=== PATIENT | male | born 1995 | race Caucasian/White ===

== ENCOUNTER 2017-01-25 17:51 | Emergency (ER) | payer BC ==
[~2017-01-25] VITALS: Ht 193 cm; Wt 86.2 kg
[2017-01-25 18:00] VITALS: BP 134/72
[2017-01-25] MEDS ORDERED: ACETAMINOPHEN 500 MG TABLET PO ONE (18:00)
--- NOTE | 2017-01-25 18:05 | PHYS DOC ---
Past Medical History Alcohol Use: Occasionally Adult General Chief Complaint Chief Complaint: FEVER HPI HPI Patient is a 21 year old male arrives to the emergency department with a 2 day history of sore throat, fever today. He measured fever 104. He took Tylenol prior to arrival. He states that he developed general body aches yesterday. No nausea, no vomiting, no abdominal pain. Review of Systems Review of Systems Constitutional: Fever Without chills Eyes: Denies change in visual acuity, redness, or eye pain [] HENT: Sore throat without nasal congestion Respiratory: Denies cough or shortness of breath [] Cardiovascular: No additional information not addressed in HPI [] GI: Denies abdominal pain, nausea, vomiting, bloody stools or diarrhea [] : Denies dysuria or hematuria [] Musculoskeletal: Denies back pain or joint pain [] Integument: Denies rash or skin lesions [] Neurologic: Denies headache, focal weakness or sensory changes [] Endocrine: Denies polyuria or polydipsia [] All other systems were reviewed and found to be within normal limits, except as documented in this note. Current Medications Current Medications Current Medications Medications (Trade) Dose Ordered Sig/Mike Start Time Stop Time Status Last Admin Dose Admin Acetaminophen (Tylenol) 1,000 mg 1X ONCE 01/25/17 18:00 01/25/17 18:01 UNV Ibuprofen (Motrin) 800 mg 1X ONCE 01/25/17 18:30 01/25/17 18:31 Allergies Allergies Allergies Coded Allergies Type Severity Reaction Last Updated Verified No Known Drug Allergies 01/25/17 No Physical Exam Physical Exam Constitutional: Well developed, well nourished, no acute distress, non-toxic appearance. [] HENT: Normocephalic, atraumatic, bilateral external ears normal, posterior pharynx erythematous, uvula midline, oropharynx moist, no oral exudates, nose normal. [] Eyes: PERRLA, EOMI, conjunctiva normal, no discharge. [] Neck: Normal range of motion, no tenderness, supple, no stridor. [] Cardiovascular:Heart rate regular rhythm, no murmur [] Lungs & Thorax: Bilateral breath sounds clear to auscultation [] Abdomen: Bowel sounds normal, soft, no tenderness, no masses, no pulsatile masses. [] Skin: Warm, dry, no erythema, no rash. [] Back: No tenderness, no CVA tenderness. [] Neurologic: Alert and oriented X 3, normal motor function, normal sensory function, no focal deficits noted. [] Psychologic: Affect normal, judgement normal, mood normal. [] Current Patient Data Vital Signs Vital Signs Date Time Temp Pulse Resp B/P (MAP) Pulse Ox O2 Delivery O2 Flow Rate FiO2 01/25/17 18:00 102.9 80 18 100 Room Air 102.9 EKG EKG [] Radiology/Procedures Radiology/Procedures [] Course & Med Decision Making Course & Med Decision Making Strep positive. Patient's father confirms he has no penicillin allergy. He'll be given Bicillin LA 1.2 milliunits IM in the emergency department. Pertinent Labs and Imaging studies reviewed. (See chart for details) [] Dragon Disclaimer Dragon Disclaimer This electronic medical record was generated, in whole or in part, using a voice recognition dictation system. Departure Departure Impression: Primary Impression: Strep pharyngitis Disposition: HOME, SELF-CARE Condition: STABLE Referrals: NO PCP (PCP) [facility] Patient Instructions: Strep Throat Additional Instructions: You were given a penicillin injection in the emergency department. He may not return to work or social functions into your fever free for 24 hours. Continue to use Tylenol alternating with Motrin [id number] as labeled and is indicated for fever management. Increase fluid intake. Return to the emergency department his symptoms or concerns or worsening of current condition. RADHA MAXWELL APRN Jan 25, 2017 18:05
[2017-01-25] MEDS ORDERED: IBUPROFEN 800 MG TABLET. PO ONE (18:30)
[2017-01-25] MEDS ORDERED: PENICILLIN G BENZATHINE LA 1,200,000 UNIT/2 ML DISP.SYRIN. IM ONE (18:30)
[2017-01-25 18:38] LABS: OBC FLU VALID
[2017-01-26 05:42] LABS: NEGATIVE OBC STREP NEG; POSITIVE OBC STREP POS
== END 2017-01-25 18:30 | disposition home or self-care (01) ==
LOC: ER 17:51
DX: J02.0 Streptococcal pharyngitis (principal)
CPT/HCPCS: 87804; 87880; 96372; 99284; J0561